=== PATIENT | female | born 1965 | race Caucasian/White ===

== ENCOUNTER → 2016-04-22 | Outpatient (REF) | payer OTHER | END | disposition home or self-care (01) | LOC: M SFHCCLAY 11:50 | PROVIDERS: ATTEND Nurse Practitioner Family | DX: N39.0 Urinary tract infection, site not specified (principal) ==

== ENCOUNTER → 2016-04-30 | Outpatient (CLI) | payer OTHER ==
--- NOTE | 2016-04-30 10:20 | REP ---
Chest x-ray, PA and lateral: 04/30/2016. Clinical history: Cough. No prior study. Lungs are well inflated and without infiltrate, effusion, atelectatic change or mass. No lateral pleural thickening or apical scarring. The heart is not enlarged. The aorta is mildly tortuous without aneurysm and normal for age. Mediastinal and hilar contours intact Airway normal. The bony thorax shows some marginal osteophytes without compression deformity. Impression: 1. No acute cardiopulmonary change. Signed by Ranulfo Montiel MD 04/30/2016 05:17 P
== END | disposition home or self-care (01) ==
LOC: M CLY 08:29
PROVIDERS: ATTEND Nurse Practitioner Family
DX: R05 Cough (principal)

== ENCOUNTER → 2016-08-24 | Outpatient (REF) | payer OTHER ==
[2016-08-25 11:40] LABS: MEAN CORPUSCULAR HEMOGLOBIN 28.6 pg (27.0-33.0); MEAN CORPUSCULAR HGB CONC 33.1 g/dl (32.0-36.5); MEAN CORPUSCULAR VOLUME 86.5 fl (80.0-96.0); RED CELL DISTRIBUTION WIDTH 13.9 % (11.5-14.5); WHITE BLOOD COUNT 8.8 K/mm3 (4.0-10.0)
[2016-08-25 12:11] LABS: ALBUMIN 3.9 GM/DL (3.2-5.2); ANION GAP 7 MEQ/L (8-16); BLOOD UREA NITROGEN 16 MG/DL (7-18); CALCIUM LEVEL 9.3 MG/DL (8.5-10.1); CARBON DIOXIDE LEVEL 32 MEQ/L (21-32); CHLORIDE LEVEL 103 MEQ/L (98-107); CREATININE FOR GFR 0.73 MG/DL (0.55-1.02); GLOMERULAR FILTRATION RATE > 60.0 (>51); GLUCOSE, FASTING 83 MG/DL (70-105); MAGNESIUM LEVEL 2.4 MG/DL (1.8-2.4); POTASSIUM SERUM 4.1 MEQ/L (3.5-5.1); SODIUM LEVEL 142 MEQ/L (136-145)
[2016-08-25 12:21] LABS: VITAMIN B12 LEVEL 513 PG/ML (247-911)
== END ==
LOC: M SFHCCLAY 14:33
PROVIDERS: ATTEND Family Medicine
DX: R55 Syncope and collapse (principal); Z98.84 Bariatric surgery status

== ENCOUNTER → 2016-11-15 | Outpatient (REF) | payer OTHER | LOC: M LAB REF 10:34 | PROVIDERS: ATTEND Physician Assistant | DX: N39.0 Urinary tract infection, site not specified (principal) ==

== ENCOUNTER → 2018-06-29 | Outpatient (REF) | payer OTHER | LOC: M SFHCCLAY 09:05 | PROVIDERS: ATTEND Nurse Practitioner Family | DX: N39.0 Urinary tract infection, site not specified (principal) ==

== ENCOUNTER → 2018-08-03 | Outpatient (REF) | payer OTHER ==
[2018-08-03 12:04] LABS: BASO # 0.1 10^3/uL (0.0-0.2); BASO % 0.9 % (0.0-1.0); EOS # 0.1 10^3/uL (0.0-0.50); EOS % 1.8 % (0.0-3.0); HEMOGLOBIN 12.8 g/dl (12.0-15.5); LYMPH # 2.1 10^3/uL (1.5-4.5); LYMPH % 39.4 % (24.0-44.0); MEAN CORPUSCULAR HEMOGLOBIN 27.5 pg (27.0-33.0); MEAN CORPUSCULAR VOLUME 85.8 fl (80.0-96.0); MONO # 0.4 10^3/uL (0.0-0.8); MONO % 8.1 % (0.0-5.0); NEUTROPHILS # 2.7 10^3/uL (1.8-7.7); NEUTROPHILS % 49.6 % (36.0-66.0); PLATELET COUNT, AUTOMATED 318 10^3/uL (150-450); RED BLOOD COUNT 4.66 10^6/uL (4.00-5.40); WHITE BLOOD COUNT 5.4 10^3/uL (4.0-10.0)
[2018-08-03 12:44] LABS: ALBUMIN 3.6 GM/DL (3.2-5.2); ALT/SGPT 23 U/L (12-78); BILIRUBIN,TOTAL 0.4 MG/DL (0.2-1.0); BLOOD UREA NITROGEN 12 MG/DL (7-18); CALCIUM LEVEL 8.6 MG/DL (8.5-10.1); CARBON DIOXIDE LEVEL 30 MEQ/L (21-32); CHLORIDE LEVEL 106 MEQ/L (98-107); CHOLESTEROL LEVEL 187 MG/DL (<200); CREATININE FOR GFR 0.62 MG/DL (0.55-1.30); FERRITIN 25 NG/ML (8-252); FOLATE 4.6 NG/ML (>5.4); GLOMERULAR FILTRATION RATE > 60.0 (>51); GLUCOSE, FASTING 78 MG/DL (70-100); HDL CHOLESTEROL 76 MG/DL (>40); IRON (FE) 128 UG/DL (50-170); LDL CHOLESTEROL 95 MG/DL (<100); MAGNESIUM LEVEL 2.2 MG/DL (1.8-2.4); NON-HDL-C 111 MG/DL; PERCENT SATURATION 31.8 % (13.2-45.0); POTASSIUM SERUM 4.2 MEQ/L (3.5-5.1); SODIUM LEVEL 142 MEQ/L (136-145); TOTAL 25(OH) VITAMIN D 22.9 NG/ML (30.0-100.0); TOTAL IRON BINDING CAPACITY 403 UG/DL (250-450); TOTAL PROTEIN 7.1 GM/DL (6.4-8.2); TRIGLYCERIDES LEVEL 80 MG/DL (<150); VITAMIN B12 LEVEL 362 PG/ML (247-911)
== END ==
LOC: M SFHCCLAY 08:06
PROVIDERS: ATTEND Nurse Practitioner Family
DX: Z98.84 Bariatric surgery status (principal); E78.49 Other hyperlipidemia; F32.9 Major depressive disorder, single episode, unspecified; E55.9 Vitamin D deficiency, unspecified

== ENCOUNTER → 2018-11-07 | Outpatient (CLI) | payer OTHER ==
--- NOTE | 2018-11-07 08:42 | REP ---
Clinical: Hepatic cyst. Technique: Real time pope scale ultrasound examination using curved array transducer. Findings: Liver is relatively normal in contour, size, and echogenicity. There is a 2.4 cm cyst in the left lobe which demonstrates single septation and appears otherwise relatively benign. No further hepatic lesions are appreciated. The pancreas is unremarkable. The gallbladder is normal and without gallstones, wall thickening, or pericholecystic fluid. Biliary ductal dilatation is appreciated and the common bile duct measures 6 mm diameter. The right kidney is normal in reniform shape without hydronephrosis and measures 11.0 x 5.2 x 5.2 cm with 3 mm nonobstructing calculus suggested. No ascites. Impression: 1. 2.4 cm hepatic cyst with single septation likely representing benign hepatic cyst. 2. Possible 3 mm nonobstructing right renal calculus. Electronically Signed by Devang Tucker MD 11/07/2018 08:33 A
== END ==
LOC: M RAD 07:48
PROVIDERS: ATTEND Nurse Practitioner Family
DX: K76.89 Other specified diseases of liver (principal)

== ENCOUNTER → 2018-11-08 | Outpatient (REF) | payer OTHER ==
[2018-11-09 15:46] LABS: APPEARANCE, URINE HAZY (CLEAR); BACTERIA, URINE AUTO NEGATIVE (NEGATIVE); BILIRUBIN, URINE AUTO NEGATIVE (NEGATIVE); BLOOD, URINE BLOOD NEGATIVE (NEGATIVE); CALCIUM OXALATE CRYSTALS MODERATE; COLOR, URINE YELLOW (YELLOW); GLUCOSE, URINE (UA) AUTO NEGATIVE (NEGATIVE); KETONE, URINE AUTO NEGATIVE (NEGATIVE); LEUKOCYTE ESTERASE, URINE AUTO 2+ (NEGATIVE); MUCUS, URINE SMALL (NEGATIVE); NITRITE, URINE AUTO NEGATIVE (NEGATIVE); PROTEIN, URINE AUTO NEGATIVE (NEGATIVE); RBC, URINE AUTO 1 /HPF (0-3); SPECIFIC GRAVITY URINE AUTO 1.017 (1.002-1.035); SQUAMOUS EPITHELIAL CELL UR AU 3 /HPF (0-6); UROBILINOGEN, URINE AUTO 0.2 mg/dL (0.0-2.0); WBC, URINE AUTO 1 /HPF (0-3)
== END ==
LOC: M SFHCCLAY 16:27
PROVIDERS: ATTEND Nurse Practitioner Family
DX: N39.0 Urinary tract infection, site not specified (principal)

== ENCOUNTER → 2019-01-08 | Outpatient (REF) | payer OTHER ==
[~2019-01-08] MED LIST: ALL10TAB29 PO; BARI1CAP PO; STIM1.5S; TRAM50TA2 PO
[2019-01-08 17:01] LABS: INR 0.97; PROTHROMBIN TIME 12.6 SECONDS (11.8-14.0)
[2019-01-08 17:02] LABS: PARTIAL THROMBOPLASTIN TIME 33.6 SECONDS (25.0-38.4)
[2019-01-12 14:22] LABS: FACTOR 8 RISTOCETIN COFACTOR 36 % (50-200); FACTOR VIII ACTIVITY 39 % (56-140); FACTOR VIII AG (VON WILLEBRAN) 68 % (50-200)
== END ==
LOC: M SFHCCLAY 09:56
PROVIDERS: ATTEND Nurse Practitioner Family
DX: D68.0 Von Willebrand disease (principal)

== ENCOUNTER → 2019-01-08 | Outpatient (REF) | payer OTHER ==
[2019-01-08 17:55] LABS: HEMATOCRIT 39.3 % (36.0-47.0); HEMOGLOBIN 12.8 g/dl (12.0-15.5); MEAN CORPUSCULAR HEMOGLOBIN 28.3 pg (27.0-33.0); MEAN CORPUSCULAR HGB CONC 32.6 g/dl (32.0-36.5); MEAN CORPUSCULAR VOLUME 86.8 fl (80.0-96.0); PLATELET COUNT, AUTOMATED 242 10^3/uL (150-450); RED BLOOD COUNT 4.53 10^6/uL (4.00-5.40); WHITE BLOOD COUNT 5.4 10^3/uL (4.0-10.0)
[2019-01-08 18:02] LABS: BLOOD UREA NITROGEN 11 MG/DL (7-18); CALCIUM LEVEL 8.6 MG/DL (8.5-10.1); CARBON DIOXIDE LEVEL 28 MEQ/L (21-32); CHLORIDE LEVEL 106 MEQ/L (98-107); CREATININE FOR GFR 0.75 MG/DL (0.55-1.30); GLOMERULAR FILTRATION RATE > 60.0 (>51); GLUCOSE, FASTING 161 MG/DL (70-100); POTASSIUM SERUM 3.7 MEQ/L (3.5-5.1); SODIUM LEVEL 140 MEQ/L (136-145)
== END ==
LOC: M LABDRAWC 16:06
PROVIDERS: ATTEND Plastic Surgery Surgery of the Hand
DX: N62 Hypertrophy of breast (principal)

== ENCOUNTER → 2019-01-08 | Outpatient (CLI) | payer OTHER ==
--- NOTE | 2019-01-08 14:56 | REP ---
Chest x-ray: Two views. History: Preop. Comparison chest x-ray: April 30, 2016. Findings: There are surgical clips in the left upper quadrant of the abdomen. The lungs remain well inflated and clear. The pleural angles are sharp. Heart size is normal. There is a mild dextroconvex thoracic curvature unchanged along with some mild discogenic spurring. Impression: No active cardiopulmonary disease. Electronically Signed by Aidan Couch MD 01/08/2019 02:47 P
== END ==
LOC: M CLY 13:01
PROVIDERS: ATTEND Nurse Practitioner Family
DX: Z01.818 Encounter for other preprocedural examination (principal)

== ENCOUNTER 2019-01-18 08:22 | Day surgery (SDC) | payer OTHER ==
[~2019-01-18] VITALS: Ht 160 cm; Wt 71.2 kg
[~2019-01-18 08:22] MED LIST changes: +**UNRESOLVED NON-FORMULARY MED ORDER XX SCH; +DESMOPRESSIN 0.01% NASAL SOLN 5 ML BTL SCH; +LIDOCAINE 1% MDV 20ML VIAL SQ PRN; +LR 1,000 ML IV ONE; +ceFAZolin SOD 1 GM in D5W MINI-BAG PLUS 50 ML IV ONE
[2019-01-18] MEDS ORDERED: ROCURONIUM BROMIDE 50 MG/5 ML VIAL As Ordered ONE ×3 (08:23→12:05)
[2019-01-18] MEDS ORDERED: ONDANSETRON 4MG/2ML VIAL (J2405) As Ordered ONE (08:23)
[2019-01-18] MEDS ORDERED: PROPOFOL 200 MG/20 ML VIAL As Ordered ONE ×2 (08:23→11:21)
[2019-01-18] MEDS ORDERED: LIDOCAINE 2% INJ 100 MG/5 ML SDV (FOR ANES.) As Ordered ONE (08:23)
[2019-01-18] MEDS ORDERED: dexameTHASONE 4 MG/ML 1ML VIAL (J1100) As Ordered ONE (08:23)
[2019-01-18] MEDS ORDERED: fentaNYL 250 MCG/5 ML INJECTION (J3010) As Ordered ONE (08:24)
[2019-01-18] MEDS ORDERED: MIDAZOLAM INJ 2 MG/2 ML VIAL (J2250) As Ordered ONE (08:26)
[2019-01-18] MEDS ORDERED: STIMATE ONE (09:15)
[2019-01-18] MEDS ORDERED: BACITRACIN PWD 50,000 UNITS VIAL As Ordered ONE (09:26)
[2019-01-18] MEDS ORDERED: BUPIVACAINE LIPOSOME/PF 1.3% 20ML VIAL (13.3MG/ML)(EXPAREL)(C9290 PER1MG) As Ordered ONE (09:26)
[2019-01-18] MEDS ORDERED: LIDOCAINE 1% MDV 20ML VIAL As Ordered ONE (10:17)
[2019-01-18] MEDS ORDERED: EPINEPHrine INJ 1 MG/ML 1ML AMP As Ordered ONE (10:17)
[2019-01-18] MEDS ORDERED: ACETAMINOPHEN 1000MG 100ML IV BTL (OFIRMEV) (J0131 PER 10MG) As Ordered ONE (10:38)
[2019-01-18] MEDS ORDERED: SUGAMMADEX SODIUM 500 MG/5 ML VIAL (BRIDION) As Ordered ONE (10:55)
[2019-01-18] MEDS ORDERED: HYDROmorphone HCL 2 MG/ML 1ML VIAL (J1170) As Ordered ONE (11:20)
[2019-01-18] MEDS ORDERED: fentaNYL 100 MCG/2 ML INJECTION (J3010) As Ordered ONE (11:21)
[2019-01-18] MEDS ORDERED: ePHEDrine SULFATE 25 MG/5 ML(5MG/ML) SYRINGE As Ordered ONE ×2 (12:14→13:16)
--- NOTE | 2019-01-18 13:33 | POST-OPPD ---
Postoperative Procedure Note Date Of Procedure: Jan 18, 2019 PREOPERATIVE DIAGNOSIS: Symptomatic macromastia POSTOPERATIVE DIAGNOSIS: same FINDINGS: Large breasts, ptosis breasts PROCEDURE: Bilateral Breast Reduction SURGEON: Dr Neal ANESTHESIA: General SPECIMENS: Right breast 307g, Left breast 240g ESTIMATED BLOOD LOSS: 75cc REPLACED: none DRAINS: 10 mm TATIANA drains x 2 COMPLICATIONS: none POSTOPERATIVE CONDITION: stable APOLINAR NEAL DO Jan 18, 2019 13:33
[2019-01-18] MEDS ORDERED: ONDANSETRON 4MG/2ML VIAL (J2405) IV PRN ×2 (14:00→15:00)
[2019-01-18] MEDS ORDERED: METOCLOPRAMIDE INJ 10MG/2ML VIAL (J2765) IV PRN (14:00)
[2019-01-18] MEDS ORDERED: fentaNYL 100 MCG/2 ML INJECTION (J3010) IV PRN (14:00)
[2019-01-18] MEDS ORDERED: PERCOCET 5MG/325MG TAB PO PRN (14:00)
[2019-01-18] MEDS ORDERED: LR 1,000 ML IV SCH (14:00)
[2019-01-18 14:45] VITALS: BP 126/76
[2019-01-18] MEDS ORDERED: MORPHINE 4 MG/ML 1ML VIAL/SYRINGE (J2270) IV PRN (15:00)
[2019-01-18] MEDS: LR 1,000 ML IV SCH (15:14)
[2019-01-18 15:15] VITALS: BP 120/71
[2019-01-18 16:15] VITALS: BP 120/70
[2019-01-18 17:15] VITALS: BP 119/70
[2019-01-18 18:15] VITALS: BP 100/58
[2019-01-18] MEDS: PERCOCET 5MG/325MG TAB PO PRN ×2 (18:25→22:54)
[2019-01-18] MEDS: ceFAZolin SOD 1 GM in D5W MINI-BAG PLUS 50 ML IV SCH (18:25)
[2019-01-18 20:34] VITALS: BP 98/58
--- NOTE | 2019-01-18 23:46 | RO ---
DATE OF PROCEDURE: 01/18/2019 PREPROCEDURE DIAGNOSIS: Symptomatic macromastia, breast ptosis. POSTPROCEDURE DIAGNOSIS: Symptomatic macromastia, breast ptosis. PROCEDURE: Bilateral breast reduction. SURGEON: Whitney cShaffer DO ANESTHESIA: General. BLOOD LOSS: 75 mL. DRAINS: Two 10 mm Ryan-Calderon drains, one on each side. SPECIMEN: Right breast 307g, Left breast 240g No blood replacement needed. No medications. DESCRIPTION OF PROCEDURE: This is a 53-year-old female who was status post gastric bypass with significant weight loss. The patient is presenting with upper back pain and large breasts with significant ptosis. The patient is a good candidate for bilateral breast reduction, and all the risks and benefits and alternatives discussed with the patient, and she is ready to proceed with surgery. On the day of surgery, she was measured in preoperative holding area and marked. Sternal notch to the nipple areolar complex on the left is 29 cm, on the right it is 30. Right breast is slightly larger. She also has her IMF level is a 21. There is where the new nipple areolar complex is going to be placed. She was marked according to superomedial pedicle pattern until the marking was completed. The patient was brought into the operating room, placed in supine position. Preoperative antibiotics were given. Sequential stockings placed on the lower calves. General anesthesia was induced. She was prepped and draped in the usual sterile fashion. We started our procedure on the right side. Nipple areolar complex was outlined at 42 mm in diameter and then incision was carried out with a #10 blade. The dissection was completed by resecting inferolateral portion of the breast. The pedicle has good perfusion, and the pedicle itself was de-epithelialized using Ritchie scissors. Hemostasis was obtained using electrocautery. The wound was irrigated and Exparel was infiltrated into the wound, about 10 mL. Then, the pedicle was turned superiorly to its new location at 21 cm from sternal notch, and the breast mound was re-created. #0 Vicryl was used as conforming sutures to help re-create, also the supporting sutures were placed laterally along the lateral chest wall to accommodate the excess tissue that was laterally extending from the breast. The pillars were then closed with interrupted #3-0 Monocryl sutures, the length of the vertical limb is 7 cm. Excess tissue was measured inferiorly and resected creating the horizontal incision, which was closed with interrupted #3-0 Monocryl sutures in layers. 10 mm Ryan-Calderon drain was placed through the horizontal incision laterally and then nipple areolar complex was closed in layers and sutured in place with interrupted #3-0 and #4-0 Monocryl sutures, then #5-0 plain. Then, we turned our attention to the left side, which was slightly smaller. We outlined the measurements of the nipple areolar complex at 42 mm in diameter and then resection started using a #10 blade scalpel, and then electrocautery and PEAK cautery as well. Inferolateral portion of the breast was resected. Hemostasis was obtained, and then the wound was irrigated with bacitracin irrigation. The pedicle was de-epithelialized using Ritchie scissors. The pedicle was in good vascular condition. Then, we injected 7 mL of Exparel on each side, and then the mound was re-created and sutured with #0 Vicryl conforming sutures. The lateral portion of the chest wall was also supported with #0 Vicryl, eliminating the excess tissue on the lateral chest extending from the breast. The pillars were closed with interrupted #3-0 Monocryl sutures. The vertical scar was 7 cm. Excess tissue was then re-measured and resected, creating the horizontal scar, which was closed also with #3-0 Monocryl sutures in layers. 10 mm Ryan-Calderon drain was placed through the lateral portion of the horizontal incision. Then, the nipple areolar complex was sutured in place with layered closure using #3-0 and #4-0 Monocryl sutures and #5-0 Plain gut. We used Prineo as a dressing for the vertical and the horizontal scars, and for the nipple areolar complex we used Xeroform and a bulky dressing. Surgical bra was placed. The patient was extubated in the operating room without any difficulties and transferred to the recovery room in stable condition. Total amount of Exparel was 20 mL for both breasts and patient was transferred to recovery room in stable condition. CHUY
[2019-01-19 02:04] VITALS: BP 99/56
[2019-01-19] MEDS: ceFAZolin SOD 1 GM in D5W MINI-BAG PLUS 50 ML IV SCH (02:09)
[2019-01-19] MEDS: LR 1,000 ML IV SCH (04:51)
[2019-01-19] MEDS: PERCOCET 5MG/325MG TAB PO PRN ×2 (05:30→10:41)
[2019-01-19 06:20] VITALS: BP 114/68
--- NOTE | 2019-01-19 07:51 | IPNPDOC ---
Subjective General Date/Time Seen The patient was seen on 01/19/19 at 07:49. Subject Chief Complaint/History The patient is a 53-year-old female admitted with a reason for visit of Bilateral Breast Hypertrophy. POD 1 s/p BBR. Doing well. Tolerating diet, ambulated. Pain controlled. Current Medications Current Medications Current Medications Medications (Trade) Dose Ordered Sig/Anupam Route PRN Reason Start Time Stop Time Status Last Admin Dose Admin Cefazolin Sodium 1 gm/Dextrose 50 ml @ 100 mls/hr Q8H IV 01/18/19 18:00 01/19/19 02:29 DC 01/19/19 02:09 Desmopressin Acetate (Ddavp) 1 spray ONCE NA 01/18/19 06:00 UNV Fentanyl Citrate (Sublimaze) 25 mcg Q5MP PRN IV MODERATE PAIN (PS 4-7) 01/18/19 14:00 01/18/19 15:00 DC Lactated Ringer's 1,000 ml @ 75 mls/hr [id number] IV 01/18/19 15:00 01/19/19 04:51 Lactated Ringer's 1,000 ml @ 100 mls/hr Q10H IV 01/18/19 14:00 01/18/19 15:00 DC Lidocaine HCl (LIDOCAINE 1% MDV 20ml) 0.1 ml ONCE PRN SQ DISCOMFORT BEFORE IV START 01/18/19 06:00 01/18/19 13:50 DC Metoclopramide HCl (REGLAN INJection) 10 mg Q6HP PRN IV NAUSEA OR VOMITING 01/18/19 14:00 01/18/19 15:00 DC Miscellaneous (Unresolved Non-Formulary Med Order) SEE LABEL COMMENTS DAILY XX 01/17/19 09:00 01/18/19 09:04 DC Morphine Sulfate (Morphine Sulfate Inj) 4 mg Q4H PRN IV SEVERE PAIN 01/18/19 15:00 Ondansetron HCl (ZOFRAN INJection) 4 mg Q4HP PRN IV NAUSEA OR VOMITING 01/18/19 14:00 01/18/19 15:00 DC Ondansetron HCl (ZOFRAN INJection) 4 mg Q6H PRN IV NAUSEA 01/18/19 15:00 Oxycodone/ Acetaminophen (Percocet 5mg/ 325mg Tablet) 1 tab ASDIRECTED PRN PO MILD/MODERATE PAIN (PS 1-7) 01/18/19 14:00 01/18/19 15:00 DC 01/18/19 14:25 Oxycodone/ Acetaminophen (Percocet 5mg/ 325mg Tablet) 1 tab Q4H PRN PO MODERATE PAIN 01/18/19 15:00 01/19/19 05:30 Allergies Coded Allergies: No Known Allergies (Unverified , 01/04/19) Objective Physical Examination Examination GENERAL APPEARANCE:Patient seen, laying in bed, awake, alert, and oriented. Comfortable, in no acute distress. SKIN: Warm and moist. BREAST: soft. Incisions intact. TATIANA serosanguinous minimal. NAC viable, warm. LUNGS: Clear to auscultation bilaterally. No wheezing appreciated. HEART: No chest wall abnormalities. Regular rate and rhythm with no murmurs appreciated. Vital Signs Vital Signs Date Time Temp Pulse Resp B/P (MAP) Pulse Ox O2 Delivery O2 Flow Rate FiO2 01/19/19 06:20 98.9 63 16 114/68 (83) 98 I&Os I&O- Last 24 Hours up to 6 AM 01/19/19 06:00 Intake Total 2525 ml Output Total 1445 ml Balance 1080 ml Impression Symptomatic macromastia. BBR POD1 Stable for discharge Pain controlled Instructions given TATIANA monitoring at home Dressings changed F/up plastic surgery Plan / VTE VTE Prophylaxis Ordered?: Yes APOLINAR NEAL DO Jan 19, 2019 07:51
[2019-01-19 10:00] VITALS: BP 115/70
[2019-01-19] MEDS ORDERED: TRAM50TA2 PO (11:24)
== END 2019-01-19 13:00 | disposition home or self-care (01) ==
LOC: M SDC 08:22 → M MS5PR 14:40 → M SDC 01-19 13:00
PROVIDERS: ATTEND Plastic Surgery Surgery of the Hand
DX: N62 Hypertrophy of breast (principal); N64.81 Ptosis of breast; I10 Essential (primary) hypertension; D68.0 Von Willebrand disease; F17.210 Nicotine dependence, cigarettes, uncomplicated; Z98.84 Bariatric surgery status; Z98.51 Tubal ligation status; Z78.0 Asymptomatic menopausal state
CPT/HCPCS: 19318; 36415; 86850; 86900; 86901; 88305; 96360; 96361; C9290; J0131; J0690; J1100; J1170; J2250; J2405; J3010

== ENCOUNTER → 2019-01-23 | Outpatient (REF) | payer OTHER ==
[~2019-01-23] MED LIST changes: -**UNRESOLVED NON-FORMULARY MED ORDER XX SCH; -DESMOPRESSIN 0.01% NASAL SOLN 5 ML BTL SCH; -LIDOCAINE 1% MDV 20ML VIAL SQ PRN; -LR 1,000 ML IV ONE; -ceFAZolin SOD 1 GM in D5W MINI-BAG PLUS 50 ML IV ONE
== END ==
LOC: M SFHCCLAY 16:13
PROVIDERS: ATTEND Nurse Practitioner Family
DX: R39.15 Urgency of urination (principal)

== ENCOUNTER → 2020-06-20 | Outpatient (CLI) | payer OTHER ==
[~2020-06-20] MED LIST changes: -ALL10TAB29 PO; +CETI-24 PO
--- NOTE | 2020-06-20 13:55 | REP ---
INDICATION: CHEST PAIN. COMPARISON: Comparison chest x-ray January 08, 2019. TECHNIQUE: Two views.. FINDINGS: The lungs are well inflated and free of infiltrate. The pleural angles are sharp. The heart size is normal. Pulmonary vasculature is not increased. No significant bony abnormality is seen. There is mild dextroconvex curve in the thoracic spine with some degenerative disc change. There are surgical clips in the left upper quadrant of the abdomen. IMPRESSION: No active disease.. <Electronically signed by Damon Couch > 06/20/20 [id number]
== END ==
LOC: M WUC 13:39
PROVIDERS: ATTEND Physician Assistant
DX: R07.9 Chest pain, unspecified (principal)

== ENCOUNTER → 2020-12-02 | Outpatient (CLI) | payer OTHER ==
[2020-12-02 11:12] LABS: BASO # 0.1 10^3/uL (0.0-0.2); BASO % 1.1 % (0.0-1.0); EOS # 0.1 10^3/uL (0.0-0.5); EOS % 2.1 % (0.0-3.0); HEMATOCRIT 39.1 % (36.0-47.0); HEMOGLOBIN 12.6 g/dl (12.0-15.5); LYMPH # 2.1 10^3/uL (1.5-5.0); LYMPH % 32.4 % (24.0-44.0); MEAN CORPUSCULAR HEMOGLOBIN 27.5 pg (27.0-33.0); MEAN CORPUSCULAR HGB CONC 32.2 g/dl (32.0-36.5); MEAN CORPUSCULAR VOLUME 85.2 fl (80.0-96.0); MONO # 0.5 10^3/uL (0.0-0.8); MONO % 7.3 % (2.0-8.0); NEUTROPHILS # 3.7 10^3/uL (1.5-8.5); NEUTROPHILS % 56.8 % (36.0-66.0); PLATELET COUNT, AUTOMATED 244 10^3/uL (150-450); RED BLOOD COUNT 4.59 10^6/uL (4.00-5.40); WHITE BLOOD COUNT 6.5 10^3/uL (4.0-10.0)
[2020-12-02 11:48] LABS: ALBUMIN 3.8 GM/DL (3.2-5.2); ALT/SGPT 19 U/L (12-78); BILIRUBIN,TOTAL 0.4 MG/DL (0.2-1.0); BLOOD UREA NITROGEN 13 MG/DL (7-18); CALCIUM LEVEL 9.1 MG/DL (8.5-10.1); CARBON DIOXIDE LEVEL 31 MEQ/L (21-32); CHLORIDE LEVEL 110 MEQ/L (98-107); CHOLESTEROL LEVEL 206 MG/DL (<200); CHOLESTEROL RISK RATIO 2.145 (<5); CREATININE FOR GFR 0.63 MG/DL (0.55-1.30); FERRITIN 14 NG/ML (8-252); GLOMERULAR FILTRATION RATE > 60.0 (>51); GLUCOSE, FASTING 80 MG/DL (70-100); HDL CHOLESTEROL 96 MG/DL (>40); IRON (FE) 103 UG/DL (50-170); LDL CHOLESTEROL 99 MG/DL (<100); NON-HDL-C 110 MG/DL; PERCENT SATURATION 23.8 % (13.2-45.0); POTASSIUM SERUM 4.3 MEQ/L (3.5-5.1); SODIUM LEVEL 143 MEQ/L (136-145); TOTAL IRON BINDING CAPACITY 432 UG/DL (250-450); TRIGLYCERIDES LEVEL 57 MG/DL (<150)
[2020-12-02 11:50] LABS: FOLATE > 24.0 NG/ML; TOTAL 25(OH) VITAMIN D 40.6 NG/ML (30.0-100.0); VITAMIN B12 LEVEL 1014 PG/ML
== END ==
LOC: M WUC 08:24
PROVIDERS: ATTEND Physician Assistant
DX: G47.00 Insomnia, unspecified (principal); Z98.84 Bariatric surgery status; G25.81 Restless legs syndrome

== ENCOUNTER → 2020-12-05 | Outpatient (REF) | payer OTHER ==
[2020-12-05 17:06] LABS: APPEARANCE, URINE HAZY (CLEAR); BACTERIA, URINE AUTO 3+ (NEGATIVE); BILIRUBIN, URINE AUTO NEGATIVE (NEGATIVE); BLOOD, URINE BLOOD 1+ (NEGATIVE); COLOR, URINE AMBER (YELLOW); GLUCOSE, URINE (UA) AUTO NEGATIVE (NEGATIVE); KETONE, URINE AUTO NEGATIVE (NEGATIVE); LEUKOCYTE ESTERASE, URINE AUTO 1+ (NEGATIVE); MUCUS, URINE SMALL (NEGATIVE); NITRITE, URINE AUTO POSITIVE (NEGATIVE); PROTEIN, URINE AUTO 1+ mg/dL (NEGATIVE); RBC, URINE AUTO 34 /HPF (0-3); SPECIFIC GRAVITY URINE AUTO 1.018 (1.002-1.035); SQUAMOUS EPITHELIAL CELL UR AU 1 /HPF (0-6); WBC, URINE AUTO 152 /HPF (0-3)
== END ==
LOC: M LAB REF 16:37
PROVIDERS: ATTEND Physician Assistant Medical
DX: R30.0 Dysuria (principal)

== ENCOUNTER → 2021-02-25 | Outpatient (REF) | payer OTHER | LOC: M SFHCCAPE 10:15 | PROVIDERS: ATTEND Physician Assistant | DX: Z01.419 Encounter for gynecological examination (general) (routine) without abnormal findings (principal) ==

== ENCOUNTER → 2021-06-06 | Outpatient (CLI) | payer OTHER ==
[~2021-06-06] MED LIST changes: +DESM1SPR; +FLON1SPR; +MONT10TA97 PO; +SUPE600T4 PO
== END ==
LOC: M LABSMTC 09:28
PROVIDERS: ATTEND Anesthesiology
DX: Z01.812 Encounter for preprocedural laboratory examination (principal); Z20.822 Contact with and (suspected) exposure to COVID-19

== ENCOUNTER 2021-06-11 11:22 | Observation (INO) | payer OTHER ==
[~2021-06-11] VITALS: Ht 160 cm; Wt 69.4 kg
[~2021-06-11 11:22] MED LIST changes: +LIDOCAINE 1% MDV 20ML VIAL SQ PRN; +LR 1,000 ML IV ONE; +ceFAZolin SOD 2 GM in IV 1 EA IV ONE
[2021-06-11] MEDS ORDERED: GENTAMICIN SULF 80MG/2ML VIAL As Ordered ONE (12:41)
[2021-06-11] MEDS ORDERED: BUPIVACAINE LIPOSOME/PF 1.3% 20ML VIAL (13.3MG/ML)(EXPAREL)(C9290 PER1MG) As Ordered ONE (12:41)
[2021-06-11] MEDS ORDERED: MIDAZOLAM INJ 2MG/2ML VIAL (J2250 PER 1MG) As Ordered ONE (13:30)
[2021-06-11] MEDS ORDERED: ROCURONIUM BROMIDE 50 MG/5 ML VIAL As Ordered ONE ×2 (13:30→15:04)
[2021-06-11] MEDS ORDERED: dexameTHASONE 4 MG/ML 1ML VIAL (J1100 PER 1MG) As Ordered ONE (13:30)
[2021-06-11] MEDS ORDERED: LIDOCAINE 2% 100MG/5ML SDV (FOR ANES.) As Ordered ONE (13:30)
[2021-06-11] MEDS ORDERED: fentaNYL 250 MCG/5 ML INJECTION As Ordered ONE (13:30)
[2021-06-11] MEDS ORDERED: propofoL 200 MG/20 ML VIAL As Ordered ONE (13:30)
[2021-06-11] MEDS ORDERED: ONDANSETRON 4MG/2ML VIAL As Ordered ONE (13:30)
[2021-06-11] MEDS ORDERED: SUGAMMADEX SODIUM 500 MG/5 ML VIAL (BRIDION) As Ordered ONE (14:28)
[2021-06-11] MEDS ORDERED: ACETAMINOPHEN 1000MG 100ML IV BTL (OFIRMEV) (J0131 PER 10MG) As Ordered ONE (14:28)
[2021-06-11] MEDS ORDERED: HYDROmorphone HCL 2MG/ML 1ML VIAL As Ordered ONE (14:29)
[2021-06-11] MEDS ORDERED: ePHEDrine SULFATE 25 MG/5 ML(5MG/ML) SYRINGE As Ordered ONE (14:37)
[2021-06-11] MEDS ORDERED: GLYCOPYRROLATE INJ 0.2 MG/ML 2 ML VIAL As Ordered ONE (14:40)
[2021-06-11] MEDS ORDERED: SEVOFLURANE INHAL SOLN 250 ML BTL As Ordered ONE (14:47)
[2021-06-11] MEDS ORDERED: CETIRIZINE (ZyrTEC) 10 MG TAB PO PRN (16:50)
[2021-06-11] MEDS: LR 1,000 ML IV SCH (16:50)
[2021-06-11] MEDS ORDERED: ONDANSETRON 4MG/2ML VIAL IV PRN ×2 (16:50→17:05)
[2021-06-11] MEDS ORDERED: fentaNYL 100 MCG/2 ML INJECTION IV PRN (17:05)
[2021-06-11] MEDS ORDERED: LR 1,000 ML IV SCH (17:05)
[2021-06-11] MEDS ORDERED: oxyCODONE 5MG TAB PO PRN (17:05)
[2021-06-11 18:00] VITALS: BP 124/76
[2021-06-11 18:30] VITALS: BP 121/72
[2021-06-11 20:03] VITALS: BP 112/66
[2021-06-11 21:30] VITALS: BP 123/69
[2021-06-11] MEDS: ceFAZolin SOD 1 GM in D5W MINI-BAG PLUS 50 ML IV SCH (21:39)
[2021-06-11] MEDS: ACETAMINOPHEN TAB 650MG DOSE (2X325MG) PO PRN (21:57)
[2021-06-12 01:07] VITALS: BP 108/62
[2021-06-12 06:07] VITALS: BP 109/63
[2021-06-12] MEDS: LR 1,000 ML IV SCH (06:10)
[2021-06-12] MEDS: ACETAMINOPHEN TAB 650MG DOSE (2X325MG) PO PRN (06:39)
[2021-06-12] MEDS: ceFAZolin SOD 1 GM in D5W MINI-BAG PLUS 50 ML IV SCH (06:39)
[2021-06-12] MEDS: traMADol 50 MG TAB PO PRN ×2 (07:50→11:53)
[2021-06-12] MEDS ORDERED: FLUTICASONE PROP 0.05% NASAL SPRAY 16 GM (FLONASE) SCH (09:00)
[2021-06-12] MEDS ORDERED: MONTELUKAST 10 MG TAB PO SCH (09:00)
[2021-06-12] MEDS ORDERED: TRAM50TA2 PO (10:21)
== END 2021-06-12 12:40 | disposition home or self-care (01) ==
LOC: M SDC 11:22 → M MS5PR 11:23
PROVIDERS: ADMIT Plastic Surgery Surgery of the Hand; ATTEND Plastic Surgery Surgery of the Hand
DX: M79.3 Panniculitis, unspecified (principal); Z98.84 Bariatric surgery status; D68.0 Von Willebrand disease; M54.9 Dorsalgia, unspecified; G89.29 Other chronic pain; F32.9 Major depressive disorder, single episode, unspecified; J30.9 Allergic rhinitis, unspecified; Z79.899 Other long term (current) drug therapy; Z72.0 Tobacco use
CPT/HCPCS: 15830; 88300; 96365; 96366; C9290; J0131; J0690; J1100; J1170; J1580; J2250; J2405; J3010

== ENCOUNTER → 2022-01-06 | Outpatient (REF) | payer OTHER ==
[~2022-01-06] MED LIST changes: -LIDOCAINE 1% MDV 20ML VIAL SQ PRN; -LR 1,000 ML IV ONE; -ceFAZolin SOD 2 GM in IV 1 EA IV ONE
== END ==
LOC: M LAB REF 19:14
PROVIDERS: ATTEND Physician Assistant
DX: N39.0 Urinary tract infection, site not specified (principal)

== ENCOUNTER → 2022-03-03 | Outpatient (REF) | payer OTHER ==
[2022-03-03 21:06] LABS: FOLATE 11.28 NG/ML (>5.4)
[2022-03-03 21:08] LABS: ALT/SGPT 18 U/L (7.0-40); BILIRUBIN,TOTAL 0.3 MG/DL (0.3-1.2); BLOOD UREA NITROGEN 9 MG/DL (9-23); CALCIUM LEVEL 9.2 MG/DL (8.5-10.1); CARBON DIOXIDE LEVEL 28 MMOL/L (20-31); CHLORIDE LEVEL 102 MMOL/L (98-107); CHOLESTEROL LEVEL 205 MG/DL (<200); CHOLESTEROL RISK RATIO 2.07 (<5); GLOMERULAR FILTRATION RATE > 60.0 (>51); GLUCOSE, FASTING 77 MG/DL (60-100); HDL CHOLESTEROL 98.6 MG/DL (>40); IRON (FE) 71 UG/DL (50-170); LDL CHOLESTEROL 92.8 MG/DL (<100); NON-HDL-C 106 MG/DL; PERCENT SATURATION 17.5 % (13.2-45.0); POTASSIUM SERUM 4.2 MMOL/L (3.5-5.1); SODIUM LEVEL 139 MMOL/L (136-145); TOTAL IRON BINDING CAPACITY 405 UG/DL (250-425); TOTAL PROTEIN 7.1 G/DL (5.7-8.2); TRIGLYCERIDES LEVEL 68 MG/DL (<150); VITAMIN B12 LEVEL 513 PG/ML (211-911)
== END ==
LOC: M WUC 11:26
PROVIDERS: ATTEND Nurse Practitioner Family
DX: K91.2 Postsurgical malabsorption, not elsewhere classified (principal); Z98.84 Bariatric surgery status; Z13.21 Encounter for screening for nutritional disorder

== ENCOUNTER → 2022-05-03 | Outpatient (REF) | payer OTHER | LOC: M LAB REF 16:34 | PROVIDERS: ATTEND Plastic Surgery Surgery of the Hand | DX: L98.7 Excessive and redundant skin and subcutaneous tissue (principal) ==

== ENCOUNTER → 2022-07-14 | Outpatient (REF) | payer OTHER ==
[2022-07-14 13:58] LABS: BASO # 0.1 10^3/uL (0.0-0.2); BASO % 0.9 % (0.0-1.0); EOS # 0.2 10^3/uL (0.0-0.5); HEMATOCRIT 38.9 % (36.0-47.0); HEMOGLOBIN 12.2 g/dl (12.0-15.5); LYMPH # 2.4 10^3/uL (1.5-5.0); MEAN CORPUSCULAR HEMOGLOBIN 27.2 pg (27.0-33.0); MEAN CORPUSCULAR HGB CONC 31.4 g/dl (32.0-36.5); MEAN CORPUSCULAR VOLUME 86.8 fl (80.0-96.0); MONO # 0.5 10^3/uL (0.0-0.8); MONO % 6.9 % (2.0-8.0); NEUTROPHILS # 3.8 10^3/uL (1.5-8.5); NEUTROPHILS % 54.1 % (36.0-66.0); PLATELET COUNT, AUTOMATED 279 10^3/uL (150-450); RED BLOOD COUNT 4.48 10^6/uL (4.00-5.40)
[2022-07-14 14:03] LABS: APPEARANCE, URINE CLEAR (CLEAR); BACTERIA, URINE AUTO 1+ (NEGATIVE); BILIRUBIN, URINE AUTO NEGATIVE (NEGATIVE); BLOOD, URINE BLOOD 1+ (NEGATIVE); COLOR, URINE STRAW (YELLOW); GLUCOSE, URINE (UA) AUTO NEGATIVE (NEGATIVE); KETONE, URINE AUTO NEGATIVE (NEGATIVE); LEUKOCYTE ESTERASE, URINE AUTO NEGATIVE (NEGATIVE); NITRITE, URINE AUTO NEGATIVE (NEGATIVE); PROTEIN, URINE AUTO NEGATIVE (NEGATIVE); RBC, URINE AUTO 0 /HPF (0-3); SPECIFIC GRAVITY URINE AUTO 1.004 (1.002-1.035); SQUAMOUS EPITHELIAL CELL UR AU 0 /HPF (0-6); UROBILINOGEN, URINE AUTO 0.2 mg/dL (0.0-2.0); WBC, URINE AUTO 0 /HPF (0-3)
[2022-07-14 14:26] LABS: FERRITIN 8.3 NG/ML (7.3-270.7)
[2022-07-14 14:27] LABS: THYROID STIMULATING HORMONE 0.854 uIU/ML (0.55-4.78)
[2022-07-14 14:28] LABS: ALBUMIN 3.6 G/DL (3.2-5.2); ALKALINE PHOSPHATASE 72 U/L (46-116); ALT/SGPT 17 U/L (7.0-40); AST/SGOT 20 U/L (<34); BILIRUBIN,TOTAL 0.3 MG/DL (0.3-1.2); BLOOD UREA NITROGEN 15 MG/DL (9-23); CALCIUM LEVEL 8.7 MG/DL (8.5-10.1); CARBON DIOXIDE LEVEL 29 MMOL/L (20-31); CHLORIDE LEVEL 107 MMOL/L (98-107); CHOLESTEROL LEVEL 190 MG/DL (<200); CHOLESTEROL RISK RATIO 2.13 (<5); CREATININE FOR GFR 0.64 MG/DL (0.55-1.30); GLOMERULAR FILTRATION RATE > 60.0 (>51); GLUCOSE, FASTING 88 MG/DL (60-100); IRON (FE) 47 UG/DL (50-170); LDL CHOLESTEROL 87.6 MG/DL (<100); PERCENT SATURATION 12.1 % (13.2-45.0); POTASSIUM SERUM 4.3 MMOL/L (3.5-5.1); SODIUM LEVEL 141 MMOL/L (136-145); TOTAL IRON BINDING CAPACITY 388 UG/DL (250-425); TOTAL PROTEIN 6.5 G/DL (5.7-8.2); TRIGLYCERIDES LEVEL 67 MG/DL (<150)
[2022-07-14 14:29] LABS: TOTAL 25(OH) VITAMIN D 31.7 NG/ML (20.0-100.0)
[2022-07-14 14:30] LABS: FOLATE 14.3 NG/ML (>5.4); VITAMIN B12 LEVEL 1409 PG/ML (211-911)
== END ==
LOC: M LABWUC 13:01
PROVIDERS: ATTEND Physician Assistant
DX: F41.1 Generalized anxiety disorder (principal); F32.1 Major depressive disorder, single episode, moderate; N39.0 Urinary tract infection, site not specified; J30.89 Other allergic rhinitis; Z98.84 Bariatric surgery status

== ENCOUNTER → 2023-01-18 | Outpatient (REF) | payer OTHER | LOC: M LAB REF 11:54 | PROVIDERS: ATTEND Physician Assistant | DX: R30.0 Dysuria (principal) ==